=== PATIENT | male | born 1945 | race Caucasian/White ===

== ENCOUNTER 2019-03-05 12:17 | Emergency (ER) | payer MEDICARE ==
[~2019-03-05] VITALS: Ht 185.4 cm; Wt 135.5 kg
[~2019-03-05 12:17] MED LIST: ALLOPURINOL100 MG; FISH OIL1000 MG PO; FLEXERIL OR; FLEXERIL10 MG OR; LISINOPRIL2.5 MG; NAPROSYN500 MG OR
[2019-03-05] MEDS ORDERED: ALLOPURINOL100 MG PO (12:55)
[2019-03-05] MEDS ORDERED: AMLODIPINE BESYL5 MG PO (12:56)
[2019-03-05] MEDS ORDERED: LISINOPRIL10 MG PO (12:57)
[2019-03-05] MEDS ORDERED: FISH OIL1000 MG PO (12:57)
[2019-03-05] MEDS ORDERED: CENTRUM PO (12:57)
[2019-03-05] MEDS ORDERED: B121000 MCG (12:59)
[2019-03-05] MEDS ORDERED: BACTRIM DS1 TAB PO (13:54)
[2019-03-05 14:00] VITALS: BP 122/68
== END 2019-03-05 14:00 | disposition home or self-care (01) ==
LOC: ED 12:17
DX: L02.512 Cutaneous abscess of left hand (principal); L03.011 Cellulitis of right finger; I10 Essential (primary) hypertension; F17.220 Nicotine dependence, chewing tobacco, uncomplicated; B95.62 Methicillin resistant Staphylococcus aureus infection as the cause of diseases classified elsewhere

== ENCOUNTER 2020-04-09 20:31 | Emergency (ER) | payer MEDICARE ==
[~2020-04-09] VITALS: Ht 185.4 cm; Wt 140.9 kg
[~2020-04-09 20:31] MED LIST changes: +ALLOPURINOL100 MG PO; +AMLODIPINE BESYL5 MG PO; +B121000 MCG; +BACTRIM DS1 TAB PO; +CENTRUM PO; +LISINOPRIL10 MG PO
[2020-04-09] MEDS ORDERED: LOSARTAN POTASS25 MG PO (20:52)
[2020-04-09 21:23] LABS: HEMATOCRIT 38.6 % (39.0-50.0); HEMOGLOBIN 12.6 g/dl (14.0-18.0); IMMATURE GRANULOCYTES 0.7 % (0.0-5.0); MEAN CELL VOLUME 100.8 fL CALC (80.0-100.0); MEAN CORPUSCULAR HGB 32.9 pG CALC (26.0-32.0); MEAN CORPUSCULAR HGB CONC 32.6 g/dL CAL (32.0-36.0); NEUT# 6.12 thou/uL (1.82-7.42); RED BLOOD COUNT 3.83 mill/uL (4.70-6.10)
[2020-04-09 21:42] VITALS: BP 130/60
[2020-04-09 21:45] LABS: ALBUMIN 3.9 g/dL (3.2-5.0); ALKALINE PHOSPHATASE 79 u/l (38-126); ANION GAP 13 (6-22 (CALC)); BILIRUBIN, TOTAL 1.4 mg/dL (0.0-1.4); BUN 13 mg/dL (8-23); BUN/CREATININE RATIO 16 (12-20 (CALC)); CARBON DIOXIDE 25 mmol/l (22-30); CHLORIDE 105 mmol/l (95-108); CREATININE 0.8 mg/dL (0.7-1.3); GFR > 60 ML/MIN (>=60 (CALC)); GFR FOR AFR.AMER. > 60 ML/MIN (>=60 (CALC)); POTASSIUM 3.7 mmol/l (3.5-5.1); SGOT/AST 23 u/l (19-48); SODIUM 139 mmol/l (137-146); TOTAL PROTEIN 6.9 g/dL (6.3-8.2)
[2020-04-09] MEDS ORDERED: TRAMADOL HYDROC50 MG PO (22:18)
[2020-04-09] MEDS ORDERED: STERAPRED DS10 MG PO (22:18)
== END 2020-04-09 22:48 | disposition home or self-care (01) ==
LOC: ED 20:31
PROVIDERS: Family Medicine
DX: M89.49 Other hypertrophic osteoarthropathy, multiple sites (principal); I10 Essential (primary) hypertension; M10.9 Gout, unspecified; J45.909 Unspecified asthma, uncomplicated; F17.220 Nicotine dependence, chewing tobacco, uncomplicated

== ENCOUNTER 2020-12-08 09:43 | Inpatient (IN) | payer MEDICARE ==
[~2020-12-08] VITALS: Ht 185.4 cm; Wt 125.0 kg
[~2020-12-08 09:43] MED LIST changes: +LOSARTAN POTASS25 MG PO; +STERAPRED DS10 MG PO; +TRAMADOL HYDROC50 MG PO
--- NOTE | 2020-12-08 09:43 | NUR ---
PATIENT TO ROOM 9 VIA WHEELCHAIR. BEDSIDE TRIAGE COMPLETED
[2020-12-08 10:28] LABS: IMMATURE GRANULOCYTES 1.1 % (0.0-5.0); MEAN CELL VOLUME 97.9 fL CALC (80.0-100.0); MEAN CORPUSCULAR HGB 31.7 pG CALC (26.0-32.0); MEAN CORPUSCULAR HGB CONC 32.4 g/dL CAL (32.0-36.0); NEUT# 5.72 thou/uL (1.82-7.42); RED BLOOD COUNT 4.7 mill/uL (4.70-6.10); RED CELL DISTRI WIDTH 13.4 % (11.5-15.5)
--- NOTE | 2020-12-08 10:30 | NUR ---
RESTING IN HIGH FOWLERS, #20 RAC INFUSING WITHOUT DIFFICULTY, SITE APPPEARS HEALTHY, WITHOUT REDNESS OR EDEMA.
[2020-12-08 10:46] LABS: D-DIMER 1.76 mg/L (0.19-0.60); PROTHROMBIN TIME 10.8 SECONDS (9.0-12.5)
[2020-12-08 10:49] LABS: HEMOGLOBIN 14.9 g/dl (14.0-18.0)
[2020-12-08 11:09] LABS: ALBUMIN 3.9 g/dL (3.2-5.0); ALKALINE PHOSPHATASE 64 u/l (38-126); BUN 24 mg/dL (8-23); BUN/CREATININE RATIO 25 (12-20 (CALC)); CARBON DIOXIDE 26 mmol/l (22-30); CHLORIDE 97 mmol/l (95-108); GFR > 60 ML/MIN (>=60 (CALC)); GFR FOR AFR.AMER. > 60 ML/MIN (>=60 (CALC)); POTASSIUM 4.3 mmol/l (3.5-5.1); TOTAL PROTEIN 7.6 g/dL (6.3-8.2)
[2020-12-08 11:10] LABS: ANION GAP 12 (6-22 (CALC)); BILIRUBIN, TOTAL 0.8 mg/dL (0.0-1.4); SGOT/AST 46 u/l (19-48); SODIUM 131 mmol/l (137-146)
[2020-12-08 11:36] LABS: URINE BLOOD DIPSTICK NEGATIVE (NEGATIVE); URINE COLOR YELLOW; URINE GLUCOSE - DIPSTICK NEGATIVE (NEGATIVE); URINE KETONE 15 mg/dL (NEGATIVE); URINE LEUK ESTERASE NEGATIVE (NEGATIVE); URINE PROTEIN - DIPSTICK 100 mg/dL (NEG-TRACE)
[2020-12-08 11:47] LABS: URINE BILIRUBIN - DIPSTICK SMALL (NEGATIVE); URINE NITRITE - DIPSTICK NEGATIVE (Negative)
[2020-12-08 11:49] LABS: URINE RENAL EPITHELIAL CELLS FEW hpf
--- NOTE | 2020-12-08 12:25 | NUR ---
REPOSITIONED PT IN MORE COMFORTABLE POSITION ON STRETCHER. DENIES NEEDS AT THIS TIME.
--- NOTE | 2020-12-08 13:27 | NUR ---
MD AT BEDSIDE TO DISCUSS RESULTS AND POC
--- NOTE | 2020-12-08 15:03 | NUR ---
RESTING QUIETLY, DENIES NEEDS AT THIS TIME.
--- NOTE | 2020-12-08 15:45 | NUR ---
ASSISTED TO STAND BESIDE FOR STRETCHER FOR URINAL USE.
--- NOTE | 2020-12-08 17:46 | NUR ---
REPORT CALLED TO ALEM BEAVERS.
--- NOTE | 2020-12-08 17:48 | NUR ---
REPORT REC FROM Sandra BHARDWAJ RN
--- NOTE | 2020-12-08 18:10 | NUR ---
TO MED SURG VIA STRETCHER, TELE MONITOR IN PLACE, O2 AT 4L VIA NC.
[2020-12-08 18:12] VITALS: BP 139/65
--- NOTE | 2020-12-08 18:15 | NUR ---
pt arrived via stretcher with o2 via nc @4L accompanied by Sandra Bustos RN. Pt assisted to the bed. O2 sustaining 88-89%. time to recover from stretcher to bed transfer given, pt still remaining as such. O2 obed NC HF applied. Pt applied on High flow 6L. o2 now 91-92%. IS device given, pt educated on proper use of device. currently achieving 1000ML. Encouraged to use Q1 hr while awake. Edema noted to ble, pt reports this is their normal appearance, strong pedal pulses bilaterally. Oriented pt to room. Call light within reach.
--- NOTE | 2020-12-08 20:31 | NUR ---
PHYSICAL ASSESMENT COMPLETE. PT CURRENTLY DENIES PAIN OR DISCOMFORT. SCHEDULED MEDICATIONS AND PRN MEDICATION ADMINISTERED, SEE E-MAR. PT DENIES ANY NEEDS AT THIS TIME. PLAN OF CARE REVIEWED, PT DENIES QUESTIONS, VERBALIZES UNDERSTANDING. ITEMS WITHIN REACH, BED LOCKED IN LOW POSITION W/ BEDRAILS UP X2. CALL DIAZ WITHIN REACH, AGREES TO CALL PRN.
[2020-12-09] VITALS: BP 135/65
[2020-12-09 04:00] VITALS: BP 140/69
--- NOTE | 2020-12-09 04:32 | NUR ---
PT LAYING IN BED WITH EYES CLOSED, APPEARS TO BE SLEEPING, APPEARS COMFORTABLE AND IN NO DISTRESS. RESPIRATIONS REGULAR AND UNLABORED. ITEMS REMAIN WITHIN REACH, CALL DIAZ REMAINS WITHIN REACH. BED REMAINS LOCKED AND IN LOW POSITION WITH BEDRAILS UP X2. WILL CONTINUE TO MONITOR.
[2020-12-09 05:30] LABS: HEMATOCRIT 45.2 % (39.0-50.0); HEMOGLOBIN 14.8 g/dl (14.0-18.0); IMMATURE GRANULOCYTES 1.5 % (0.0-5.0); MEAN CELL VOLUME 99.1 fL CALC (80.0-100.0); MEAN CORPUSCULAR HGB 32.5 pG CALC (26.0-32.0); MEAN CORPUSCULAR HGB CONC 32.7 g/dL CAL (32.0-36.0); NEUT# 4.99 thou/uL (1.82-7.42); RED BLOOD COUNT 4.56 mill/uL (4.70-6.10); RED CELL DISTRI WIDTH 13.6 % (11.5-15.5)
[2020-12-09 05:52] LABS: ALBUMIN 3.2 g/dL (3.2-5.0); ALKALINE PHOSPHATASE 60 u/l (38-126); ANION GAP 13 (6-22 (CALC)); BILIRUBIN, TOTAL 0.6 mg/dL (0.0-1.4); BUN 26 mg/dL (8-23); BUN/CREATININE RATIO 40 (12-20 (CALC)); CARBON DIOXIDE 25 mmol/l (22-30); CHLORIDE 101 mmol/l (95-108); CREATININE 0.6 mg/dL (0.7-1.3); GFR > 60 ML/MIN (>=60 (CALC)); GFR FOR AFR.AMER. > 60 ML/MIN (>=60 (CALC)); POTASSIUM 4.9 mmol/l (3.5-5.1); SGOT/AST 36 u/l (19-48); SODIUM 134 mmol/l (137-146); TOTAL PROTEIN 6.4 g/dL (6.3-8.2)
[2020-12-09 06:24] LABS: C-REACTIVE PROTEIN 15.2 mg/dL (0-0.9)
[2020-12-09 07:36] VITALS: BP 152/69
--- NOTE | 2020-12-09 07:40 | NUR ---
PT SEEN AWAKE, ALERT, ORIENTED X 3. LUNGS COARSE PER RECENT COUGH, 5 LPM NC ADVANCED TO 6 LPM NC PER SAT 87-88%. PT DENIES SHORTNESS OF BREATH.
--- NOTE | 2020-12-09 08:00 | NUR ---
PT SEEN AWAKE, ALERT, ORIENTED X 3. LUNGS DIMINISHED, COARSE AFTER COUGH, NOW ON 6 LPM NC, SATS 88-92%. PT DENIES SHORTNESS OF BREATH. LEGS ARE 2+ EDEMATOUS, PT STATES THAT THEY ARE ALWAYS THAT WAY. DAUGHTER MAE HAS CALLED AND WAS UPDATED.
[2020-12-09 11:18] VITALS: BP 151/70
--- NOTE | 2020-12-09 13:17 | NUR ---
PT'S SATS REMAIN 90% WITH 6 LPM NC. PT DENIES SHORTNESS OF BREATH. PT STATES THAT THE BED IS UNCOMFORTABLE, WILL MOVE TO CHAIR LATER OR TOMORROW.
[2020-12-09 14:45] VITALS: BP 139/67
--- NOTE | 2020-12-09 16:35 | NUR ---
PT OOB INTO CHAIR AT BEDSIDE FOR COMFORT. PT CONTINUES ON 6 LPM NC, SATS REMAIN RIGHT AROUND 90%.
[2020-12-09 21:45] VITALS: BP 144/69
[2020-12-10] VITALS (17 sets, daily range): BP systolic 120–172; BP diastolic 60–86
--- NOTE | 2020-12-10 03:54 | NUR ---
PT RESTING IN BED, NO SIGNS OF DISTRESS NOTED, RESP EVEN AND UNLABORED. PT VOICES NO NEEDS OR COMPLAINTS AT THIS TIME. CALL LIGHT IN REACH, CONTINUE TO MONITOR.
[2020-12-10 06:17] LABS: HEMATOCRIT 42.2 % (39.0-50.0); HEMOGLOBIN 13.7 g/dl (14.0-18.0); IMMATURE GRANULOCYTES 1.4 % (0.0-5.0); MEAN CELL VOLUME 99.1 fL CALC (80.0-100.0); MEAN CORPUSCULAR HGB 32.2 pG CALC (26.0-32.0); MEAN CORPUSCULAR HGB CONC 32.5 g/dL CAL (32.0-36.0); NEUT# 3.27 thou/uL (1.82-7.42); RED BLOOD COUNT 4.26 mill/uL (4.70-6.10); RED CELL DISTRI WIDTH 13.5 % (11.5-15.5)
[2020-12-10 06:28] LABS: ALBUMIN 2.8 g/dL (3.2-5.0); ALKALINE PHOSPHATASE 58 u/l (38-126); ANION GAP 12 (6-22 (CALC)); BUN 28 mg/dL (8-23); BUN/CREATININE RATIO 38 (12-20 (CALC)); CARBON DIOXIDE 24 mmol/l (22-30); CHLORIDE 104 mmol/l (95-108); CREATININE 0.7 mg/dL (0.7-1.3); GFR > 60 ML/MIN (>=60 (CALC)); GFR FOR AFR.AMER. > 60 ML/MIN (>=60 (CALC)); POTASSIUM 4.6 mmol/l (3.5-5.1); SGOT/AST 25 u/l (19-48); SODIUM 135 mmol/l (137-146); TOTAL PROTEIN 5.9 g/dL (6.3-8.2)
[2020-12-10 06:39] LABS: BILIRUBIN, TOTAL 0.3 mg/dL (0.0-1.4)
--- NOTE | 2020-12-10 08:10 | NUR ---
ASSESSMENT DONE. PATIENT IS ALERT AND ORINET X3. PATIENT DENIES PAIN. LUNGS SOUND COARSE. PATIENT STATE SOB. O2 AT 6L HF AND O2 READING 84%. INCREASE O2 10L VIA HFNC AND O2 READING 88%. ENCOURAGE PATIENT TO LAY PRONE POSITION. PATIENT REFUSING STATED THAT HE FEELS PAIN AND MORE SOB WHEN HE IS PRONE. O2 READING 88% STILL INCREASE 02 TO 15L HF. O2 READING 89%. TELE IN PLACE. ENCOURAGE PATIENT AGAIN ABOUT PRONES POSITION. PATIENT STATED OKAY BUT ONLY HALF WAY PRONE. O2 READING 90%. PATIENT DENIES ANY OTHER NEEDS AT THIS TIME. SAFETY PRECAUTIONS REINFORCED AND CALL LIGHT IN REACH.
--- NOTE | 2020-12-10 10:20 | NUR ---
DR. BOWDEN AND GISSELL SALDANA AT BEDSIDE TO ASSESS PATIENT. PATIENT IS BREATHING LABORED. DR. BOWDEN CHECKED PATIENT 02 AND READING 88% AT 15L HFNC. ORDER RECEIVED FOR PATIENT TO BE TRANSFER TO ICU.
--- NOTE | 2020-12-10 10:25 | NUR ---
PATIENT REPORT RECIEVED FROM GEO BEAVERS FROM [facility]. PATIENT WILL BE IN ICU BED 2.
--- NOTE | 2020-12-10 10:35 | NUR ---
1027 REPORT GIVEN TO NIMESH PAGAN. 1035. PATIENT TRANSFER TO ICU BED2 VIA BED AND O2 IN PLACE.
--- NOTE | 2020-12-10 10:45 | NUR ---
PATIENT IS A/O X3, ABLE TO MAKE NEEDS KNOWN TO STAFF. 3MM PERRLA. BRISK. DENIES PAIN AT THIS TIME. SATS ARE 89% ON VAPOTHERM 30L AND 70%. DIMINIHSED LUNG SOUNDS THROUGHOUT. ACTIVE BOWEL SOUNDS. SOFT OBESE ABDOMEN. STRONG EQUAL HAND BENCH CARPENTER. NO ARM DRIFT. NO LEG DRIFT. EDEMA IN BILATERAL LOWER LEGS. STRONG PULSES. SKIN IS INTACT, HAS A HEALED SCAR ON RIGHT FOREARM. SAFETY MEASURES IN PLACE. CALL LIGHT WAS IN REACH, PATIENT STATED THAT HE UNDERSTANDS HOW TO USE IT. WILL CONTINUE TO MONITOR PER HOSPITAL'S POLICY.
--- NOTE | 2020-12-10 12:00 | NUR ---
PATIENT IS SITTING UP IN BED WATCHING TV AND EATING HIS LUNCH.
--- NOTE | 2020-12-10 13:04 | NUR ---
PATIENT USED I.S AND REACHED 1250.
--- NOTE | 2020-12-10 14:00 | NUR ---
PATIENT IS WATCHING TV.
--- NOTE | 2020-12-10 15:32 | NUR ---
PATIENT'S DAUGHTER CALLED, GAVE THE PATIENT CODE, UPDATE WAS GIVEN.
--- NOTE | 2020-12-10 16:01 | NUR ---
PATIENT IS SITTING UP IN BED WATCHING TV.
--- NOTE | 2020-12-10 18:14 | NUR ---
VITALS ARE STABLE.
--- NOTE | 2020-12-10 19:41 | NUR ---
ASSESSMENT COMPLETED, PT VERBALIZES NO COMPLAINTS AT THIS TIME, PT VS ARE STABLE, JAVA SYSTEMS ANALYST IN PLACE, SR ON THE MONITOR, O2 92% PT SITTING UP IN THE BED, IV SITE CD&I 20G RH IV SALINE LOCKED, COURSE BREATH SOUNDS, BED RAILS UP AND SAFETY MEASURES IN PLACE, CALL LIGHT WITHIN REACH
--- NOTE | 2020-12-10 20:53 | NUR ---
PT LAYING IN BED WATCHING TV, DENIES ANY PAIN OR SOB, CALL LIGHT WITHIN REACH
--- NOTE | 2020-12-10 21:25 | NUR ---
PT DAUGHTER CALL FOR UPDATE, UPDATE PROVIDED FOR DAUGHTER, PT RESTING IN BED, VS ARE STABLE, CALL LIGHT WITHIN REACH
--- NOTE | 2020-12-10 22:18 | NUR ---
PT LAYING IN BED WATCHING TV, VS STABLE, PT REMINDED TO CALL FOR ASSISTANCE, CALL LIGHT WITHIN REACH
--- NOTE | 2020-12-10 23:30 | NUR ---
PT LAYING IN BED RESTING, VS STABLE, CALL DIAZ WITHIN REACH
[2020-12-11] VITALS (12 sets, daily range): BP systolic 115–166; BP diastolic 59–99
--- NOTE | 2020-12-11 00:35 | NUR ---
ASSISTED PT WITH STANDING AT BEDSIDE TO USE THE URINAL, PT TOLERATED WELL, PT ASSISTED WITH GETTING BACK IN BED, CALL DIAZ WITHIN REACH
--- NOTE | 2020-12-11 01:25 | NUR ---
PT SLEEPING, VITAL SIGNS STABLE, CALL LIGHT WITHIN REACH
--- NOTE | 2020-12-11 02:15 | NUR ---
PT ASSISTED TO THE SIDE OF THE BED TO USE THE URINAL, PT TOLERATED, PT ASSISTED BACK TO BED, PT REMINDED TO CALL FOR ASSISTANCE, PT VERBALIZED UNDERSTANDING, CALL DIAZ WITHIN REACH
--- NOTE | 2020-12-11 03:16 | NUR ---
PT WATCHING TV, VERBALIZES NO COMPLAINTS, REMINDED TO CALL FOR ASSISTANCE, CALL DIAZ WITHIN REACH
--- NOTE | 2020-12-11 04:40 | NUR ---
LAB AT BEDSIDE
--- NOTE | 2020-12-11 05:10 | NUR ---
ASSISTED PT WITH GETTING O2 BACK ON
[2020-12-11 05:28] LABS: HEMATOCRIT 42.6 % (39.0-50.0); HEMOGLOBIN 13.8 g/dl (14.0-18.0); IMMATURE GRANULOCYTES 1.1 % (0.0-5.0); MEAN CELL VOLUME 99.1 fL CALC (80.0-100.0); MEAN CORPUSCULAR HGB 32.1 pG CALC (26.0-32.0); MEAN CORPUSCULAR HGB CONC 32.4 g/dL CAL (32.0-36.0); NEUT# 3.44 thou/uL (1.82-7.42); RED BLOOD COUNT 4.3 mill/uL (4.70-6.10); RED CELL DISTRI WIDTH 13.4 % (11.5-15.5)
[2020-12-11 05:47] LABS: ALBUMIN 2.7 g/dL (3.2-5.0); ALKALINE PHOSPHATASE 54 u/l (38-126); ANION GAP 10 (6-22 (CALC)); BILIRUBIN, TOTAL 0.3 mg/dL (0.0-1.4); BUN 27 mg/dL (8-23); BUN/CREATININE RATIO 38 (12-20 (CALC)); CARBON DIOXIDE 25 mmol/l (22-30); CHLORIDE 105 mmol/l (95-108); CREATININE 0.7 mg/dL (0.7-1.3); GFR > 60 ML/MIN (>=60 (CALC)); GFR FOR AFR.AMER. > 60 ML/MIN (>=60 (CALC)); POTASSIUM 4.7 mmol/l (3.5-5.1); SGOT/AST 24 u/l (19-48); SODIUM 135 mmol/l (137-146); TOTAL PROTEIN 5.7 g/dL (6.3-8.2)
--- NOTE | 2020-12-11 05:58 | NUR ---
PT ASSISTED TO BEDSIDE TO USE THE URINAL, PT TOLERATED WELL
--- NOTE | 2020-12-11 07:47 | NUR ---
PT SEEN AWAKE, ALERT, ORIENTED X 3. BREAKFAST PROVIDED, PT EATING NOW. VAPOTHERM AT 30/80% SETTINGS.
--- NOTE | 2020-12-11 09:54 | NUR ---
FIO2 DECREASED TO 70%.
--- NOTE | 2020-12-11 13:42 | NUR ---
PT ASSISTED WITH BEDBATH TODAY AND SHAVE, STATES THAT HE FEELS MUCH BETTER. PT OOB INTO CHAIR FOR PART OF THE MORNING. SATS 91%.
--- NOTE | 2020-12-11 16:36 | NUR ---
PT IN THE BED FOR THE AFTERNOON, SEEN AT REST IN NO DISTRESS.
--- NOTE | 2020-12-11 17:08 | NUR ---
FLOW DECREASED TO 25L.
--- NOTE | 2020-12-11 18:26 | NUR ---
PT WITH INDIGESTION, PROVIDED TUMS ORDERED. VAPOTHERM DOWN TO 30L/70%, SATS 92%.
--- NOTE | 2020-12-11 19:21 | NUR ---
REPORT GIVEN BY JUSTINE. PATIENT SITTING UP ON THE SIDE OF THE BED WATCHING TV. RESP SHALLOW AND SLIGHTLY LABORED, VAPOTHERM 30L/70% FIO2. FALL AND SAFTEY PRECAUTIONS IN PLACE. LUNG SOUNDS COARSE WITH PRODUCTIVE COUGH PRESENT. 20 R HAND SALINE LOCKED. SR WITH PAV/PVC/1 DEGREE ON TELE. PLAN OF CARE DISCUSSED. PATIENT INFORMED TO CALL WITH ANY QUESTIONS OR CONCERNS
--- NOTE | 2020-12-11 20:21 | NUR ---
PATIENT REQUESTING BP CUFF TO BE TAKEN OFF FOR A WHILE. PATIENT EDUCATED ON RESONS TO CONTIUNE TO WEAR BP CUFF. PATIENT CONTIUNES TO REFUSE BP CUFF. INFORMED PATIENT THAT BP WOULD BE RETAKEN AT MIDNIGHT.
--- NOTE | 2020-12-11 22:14 | NUR ---
PATIENT RESTING IN BED WITH EYES CLOSED. RESP EVEN AND UNLABORED, VAPOTHERM IN PLACE.
[2020-12-12] VITALS (9 sets, daily range): BP systolic 118–168; BP diastolic 59–79
--- NOTE | 2020-12-12 00:15 | NUR ---
PATIENT RESTING WITH EYES CLOSED.
--- NOTE | 2020-12-12 01:53 | NUR ---
patient up to use bsc
--- NOTE | 2020-12-12 05:36 | NUR ---
MORNING LABS DRAWN
[2020-12-12 05:54] LABS: HEMATOCRIT 43.5 % (39.0-50.0); IMMATURE GRANULOCYTES 1.4 % (0.0-5.0); MEAN CORPUSCULAR HGB 32.2 pG CALC (26.0-32.0); MEAN CORPUSCULAR HGB CONC 32.2 g/dL CAL (32.0-36.0); NEUT# 3.39 thou/uL (1.82-7.42); RED BLOOD COUNT 4.35 mill/uL (4.70-6.10); RED CELL DISTRI WIDTH 13.3 % (11.5-15.5)
[2020-12-12 06:29] LABS: ALBUMIN 2.7 g/dL (3.2-5.0); ALKALINE PHOSPHATASE 53 u/l (38-126); ANION GAP 7 (6-22 (CALC)); BUN 28 mg/dL (8-23); BUN/CREATININE RATIO 37 (12-20 (CALC)); C-REACTIVE PROTEIN 4.1 mg/dL (0-0.9); CARBON DIOXIDE 26 mmol/l (22-30); CHLORIDE 106 mmol/l (95-108); CREATININE 0.7 mg/dL (0.7-1.3); GFR > 60 ML/MIN (>=60 (CALC)); GFR FOR AFR.AMER. > 60 ML/MIN (>=60 (CALC)); POTASSIUM 4.6 mmol/l (3.5-5.1); SGOT/AST 25 u/l (19-48); SODIUM 135 mmol/l (137-146); TOTAL PROTEIN 5.8 g/dL (6.3-8.2)
[2020-12-12 06:32] LABS: BILIRUBIN, TOTAL 0.5 mg/dL (0.0-1.4)
--- NOTE | 2020-12-12 08:00 | NUR ---
PT AWAKE, ALERT, ORIENTED X 3. LUNGS CLEAR BUT DIMINISHED, ALSO COARSE SOUNDING WHEN COUGHS, USES VAPOTHERM AT 30LPM/70% FIO2, SATS IN THE UPPER 80s TO LOWER 90s.
--- NOTE | 2020-12-12 09:57 | NUR ---
no changes at this time. pt doing well. nad. sitting in chair at bedisde. talking in full sentences. diet consultant to monitor.
--- NOTE | 2020-12-12 11:43 | NUR ---
Patient underwent PT intervention today. Patient carried out seated B LE AROM exercises today doing hip flexion, hip adduction, hip abduction, hamstring curls, knee extension, gluteal squeezes, and ankle pumps for 10 reps x 2 sets with verbal and tactile cuing to help decrease trick movements and fall risks. Patient participated with log rolling bed mobility and sit to stand push off transfer ADLs (1 to 2 reps) with occasional verbal and tactile cuing to help decrease fall risks.
--- NOTE | 2020-12-12 12:19 | NUR ---
no changes at this time. pt sweetie well. nad. vss. clinical informatics manager to monitor.
--- NOTE | 2020-12-12 13:03 | NUR ---
PT ASSISTED TO STAND WHILE IN CHAIR, THIS TO PROVIDE RELIEF TO HIS TAILBONE WHICH HE BROKE A CHILD. PT SOMEWHAT RESTLESS WITH BEING IN HOSPITAL FOR THIS LONG, BUT ADVISED THAT HE IS DOING OKAY.
--- NOTE | 2020-12-12 16:18 | NUR ---
PT CONTINUES IN CHAIR AT THIS TIME, HAS ASKED TO BE BACK IN BED AFTER SUPPER. SATS 92%.
--- NOTE | 2020-12-12 18:29 | NUR ---
PT BACK IN BED PRIOR TO SUPPER ARRIVAL. PT REMAINS STABLE ON CURRENT VAPOTHERM SETTINGS , SAT 92%.
--- NOTE | 2020-12-12 20:08 | NUR ---
PATIENT AWAKE IN BED, SEMI-FOWLERS POSITION. ALERT AND ORIENTED. ABLE TO MAKE NEEDS KNOWN. ON VAPOTHERM VIA N/C. RESPIRATIONS EVEN UNLABORED WHEN RESTING, SOB NOTED WHEN TALKING AND EXERTION. ON MONITOR. HR IRR. BS+. NO COMPLAINTS AT THIS TIME. ASSESSMENT COMPLETED AND CHARTED. VAD S/L. BED IN LOW POSITION. CALL LIGHT WITHIN REACH.
--- NOTE | 2020-12-12 21:14 | NUR ---
PULSE OX UNPLUGGED AND REATTACHED. PATIENT SEMI-FOWLERS. NO ACUTE DISTRESS OBSERVED.
--- NOTE | 2020-12-12 23:13 | NUR ---
PATIENT REFUSING TO HAVE B/P CHECKED EVERY HOUR. PATIENT AGREED TO HAVE B/P EVERY 4 HOURS D/T DISCOMFORT. PATIENT IS IN NO ACUTE DISTRESS AT THIS TIME.
[2020-12-13] VITALS (13 sets, daily range): BP systolic 111–168; BP diastolic 64–75
--- NOTE | 2020-12-13 00:14 | NUR ---
PATIENT RESTING QUIETLY. NO ACUTE DISTRESS OBSERVED. BED IN LOW POSITION. CALL LIGHT WITHIN REACH.
--- NOTE | 2020-12-13 02:34 | NUR ---
UP TO SIDE OF BED TO URINATE X1 ASSIST. OXYGEN SATURATION 92%.
--- NOTE | 2020-12-13 04:00 | NUR ---
RESTING QUIETLY. NO ACUTE DISTRESS. BED IN LOW POSITION. CALL LIGHT WITHIN REACH.
[2020-12-13 05:55] LABS: HEMATOCRIT 42.5 % (39.0-50.0); HEMOGLOBIN 13.7 g/dl (14.0-18.0); IMMATURE GRANULOCYTES 1.7 % (0.0-5.0); MEAN CELL VOLUME 99.1 fL CALC (80.0-100.0); MEAN CORPUSCULAR HGB 31.9 pG CALC (26.0-32.0); MEAN CORPUSCULAR HGB CONC 32.2 g/dL CAL (32.0-36.0); NEUT# 3.45 thou/uL (1.82-7.42); RED BLOOD COUNT 4.29 mill/uL (4.70-6.10); RED CELL DISTRI WIDTH 13.5 % (11.5-15.5)
[2020-12-13 06:04] LABS: ALBUMIN 2.7 g/dL (3.2-5.0); ALKALINE PHOSPHATASE 50 u/l (38-126); ANION GAP 7 (6-22 (CALC)); BILIRUBIN, TOTAL 0.5 mg/dL (0.0-1.4); BUN 29 mg/dL (8-23); BUN/CREATININE RATIO 36 (12-20 (CALC)); CARBON DIOXIDE 25 mmol/l (22-30); CHLORIDE 107 mmol/l (95-108); CREATININE 0.8 mg/dL (0.7-1.3); GFR > 60 ML/MIN (>=60 (CALC)); GFR FOR AFR.AMER. > 60 ML/MIN (>=60 (CALC)); POTASSIUM 4.6 mmol/l (3.5-5.1); SGOT/AST 23 u/l (19-48); SODIUM 135 mmol/l (137-146); TOTAL PROTEIN 5.7 g/dL (6.3-8.2)
--- NOTE | 2020-12-13 06:20 | NUR ---
PATIENT RESTING QUIETLY IN BED. NO ACUTE DISTRESS OBSERVED.
--- NOTE | 2020-12-13 07:49 | NUR ---
PT AWAKE, ALERT, ORIENTED X 3. LUNGS CLEAR BUT DIMINISHED, VAPOTHERM AT 25 LPM/ 70% FIO2 SETTINGS, SATS 90%.
--- NOTE | 2020-12-13 11:04 | NUR ---
PT SWITCHED FROM VAPOTHERM TO HIGH FLOW NASAL CANNULA AT THIS TIME. SATS IMPROVED FROM 90% TO AROUND 93-94%. PT UP TO BSC FOR BM EARLIER.
--- NOTE | 2020-12-13 11:12 | NUR ---
VAPOTHERM STANDBY. PT. ON 15L HF. O2 SAT 96%.
--- NOTE | 2020-12-13 14:42 | NUR ---
Patient participated with PT intervention today. Patient carried out seated B LE AROM exercises: hip flexion, hip adduction, hip abduction, hamstring curls, knee extension, and ankle pumps for 10 reps x 2 sets with occasional verbal and tactile cuing to help decrease trick movements and fall risks. Patient participated with log rolling bed mobility and sit to stand push off transfer ADLs for 1 to 2 reps with mod to min a x 1 with verbal and tactile cuing to help decrease fall risks.
--- NOTE | 2020-12-13 15:23 | NUR ---
PT CONTINUES VERY WELL WITH HFNC, SEEN TO BE 96%. PT BACK TO BED AFTER BEING IN CHAIR THIS MORNING.
--- NOTE | 2020-12-13 16:28 | NUR ---
O2 SAT ON 12L HF 95%. DECREASED TO 10L.
--- NOTE | 2020-12-13 17:31 | NUR ---
DAUGHTER RICARDO (OG) UPDATED ON FATHER'S CONDITION, PLEASED THAT HE HAS BEEN WEANED DOWN TO 10 LPM HFNC. PT TOLERATING WELL, SATS LOW TO MID 90s. PT HAS HAD TWO BMs TODAY.
--- NOTE | 2020-12-13 18:50 | NUR ---
RECEIVED REPORT FROM JUSTINE BEAVERS. PATIENT STABLE.
--- NOTE | 2020-12-13 19:58 | NUR ---
PATIENT SEMI-FOWLERS POSITION. ALERT AND ORIENTED X3. ABLE TO MAKE NEEDS KNOWN. O2 10L HIGH FLOW N/C. TOLERATING WELL. RESPIRATIONS EVEN AND UNLABORED. LUNG SOUNDS CLEAR WITH CRACKLES AT BASES B/L. HR IRR. ON MONITOR. BS+. NO C/O PAIN VERBALIZED. EDEMA NOTED TO BLLE =2 PITTING EDEMA. ASSESSMENT COMPLETED AND CHARTED. BED IN LOW POSITION. CALL LIGHT WITHIN REACH.
--- NOTE | 2020-12-13 20:45 | NUR ---
Lovenox 120mg Sq given as ordered, Tylenol po given for milk back pain. Tolerated well. Vapotherm in place and current setting. No acute distress observed.
--- NOTE | 2020-12-13 22:46 | NUR ---
PATIENT RESTING QUIETLY SEMI-FOWLERS POSITION. HIGH FLOW N/C IN PLACE AT CURRENT SETTINGS. NO ACUTE DISTRESS OBSERVED. BED IN LOW POSITION. CALL LIGHT WITHIN REACH.
[2020-12-14] VITALS (23 sets, daily range): BP systolic 115–179; BP diastolic 58–100
--- NOTE | 2020-12-14 00:30 | NUR ---
PATIENT RESTING QUIETLY. NO ACUTE DISTRESS OBSERVED.
--- NOTE | 2020-12-14 02:00 | NUR ---
Patient resting with eyes closed. No acute distress observed.
--- NOTE | 2020-12-14 03:12 | NUR ---
Patient up to BSC with 1 assist without difficulty. 350cc output yellow urine.
--- NOTE | 2020-12-14 04:10 | NUR ---
No changes noted.
--- NOTE | 2020-12-14 04:57 | NUR ---
A.M. labs drawn. Up to BSC x1 assist without difficulty. 100cc yellow urine out. No acute distress observed.
--- NOTE | 2020-12-14 05:24 | NUR ---
Radiology at bedside for CXR.
[2020-12-14 05:43] LABS: HEMATOCRIT 43.8 % (39.0-50.0); HEMOGLOBIN 14.3 g/dl (14.0-18.0); IMMATURE GRANULOCYTES 1.6 % (0.0-5.0); MEAN CELL VOLUME 98.6 fL CALC (80.0-100.0); MEAN CORPUSCULAR HGB 32.2 pG CALC (26.0-32.0); MEAN CORPUSCULAR HGB CONC 32.6 g/dL CAL (32.0-36.0); NEUT# 3.76 thou/uL (1.82-7.42); RED BLOOD COUNT 4.44 mill/uL (4.70-6.10); RED CELL DISTRI WIDTH 13.3 % (11.5-15.5)
[2020-12-14 06:12] LABS: ANION GAP 6 (6-22 (CALC)); BUN 24 mg/dL (8-23); BUN/CREATININE RATIO 29 (12-20 (CALC)); C-REACTIVE PROTEIN 3.4 mg/dL (0-0.9); CARBON DIOXIDE 27 mmol/l (22-30); CHLORIDE 106 mmol/l (95-108); CREATININE 0.8 mg/dL (0.7-1.3); GFR > 60 ML/MIN (>=60 (CALC)); GFR FOR AFR.AMER. > 60 ML/MIN (>=60 (CALC)); POTASSIUM 4.7 mmol/l (3.5-5.1); SODIUM 135 mmol/l (137-146)
--- NOTE | 2020-12-14 08:00 | NUR ---
PT SEEN AWAKE, ALERT, ORIENTED X 3. LUNGS WITH COARSENESS HEARD AFTER COUGH, USING 10 LPM NC. PT UNCOMFORTABLE TO BE IN ONE POSITION FOR VERY LONG PER TAILBONE INJURY IN HIS YOUTH, ASSISTED TO CHAIR.
--- NOTE | 2020-12-14 08:18 | NUR ---
O2 SAT 90% ON 10L HFNC.
--- NOTE | 2020-12-14 09:33 | NUR ---
Pt screened by ST. Given hx of asthma and current dx of PNA with need for oxygen, pt at is at a high risk for aspiration. Pt may benefit from an ST evaluation if medical team agrees.
--- NOTE | 2020-12-14 13:05 | NUR ---
PT ASSISTED TO CHAIR. PT CALLS FOR ASSISTANCE APPROPRIATELY WHEN HE NEEDS HELP.
--- NOTE | 2020-12-14 13:28 | NUR ---
PT IS ON 10L HFNC SAT IS 93%
--- NOTE | 2020-12-14 13:56 | NUR ---
Patient participated with PT intervention today. Patient worked on B LE seated AROM exercises today: hip flexion, hip adduction, hip abduction, hamstring curls, knee extension, and ankle pumps for 15 reps x 2 sets with constant verbal and tactile cuing to help decrease trick movements and fall risks. Patient also participated with log rolling bed mobility and sit to stand push off transfer ADLs (1 to 3 reps) with constant verbal and tactile cuing to help decrease fall risks.
--- NOTE | 2020-12-14 17:06 | NUR ---
IV SITE CHANGED FROM RH TO LAC, #20. PT TOLERATED WELL.
--- NOTE | 2020-12-14 17:08 | NUR ---
PT IS ON 10 SAT 97%
[2020-12-15] VITALS (17 sets, daily range): BP systolic 112–168; BP diastolic 51–82
[2020-12-15 05:48] LABS: HEMATOCRIT 45.6 % (39.0-50.0); HEMOGLOBIN 14.8 g/dl (14.0-18.0); IMMATURE GRANULOCYTES 2.1 % (0.0-5.0); MEAN CELL VOLUME 98.1 fL CALC (80.0-100.0); MEAN CORPUSCULAR HGB 31.8 pG CALC (26.0-32.0); MEAN CORPUSCULAR HGB CONC 32.5 g/dL CAL (32.0-36.0); NEUT# 3.7 thou/uL (1.82-7.42); RED BLOOD COUNT 4.65 mill/uL (4.70-6.10); RED CELL DISTRI WIDTH 13.4 % (11.5-15.5)
[2020-12-15 06:10] LABS: ANION GAP 7 (6-22 (CALC)); BUN 25 mg/dL (8-23); BUN/CREATININE RATIO 38 (12-20 (CALC)); CARBON DIOXIDE 25 mmol/l (22-30); CHLORIDE 108 mmol/l (95-108); CREATININE 0.7 mg/dL (0.7-1.3); GFR > 60 ML/MIN (>=60 (CALC)); GFR FOR AFR.AMER. > 60 ML/MIN (>=60 (CALC)); POTASSIUM 4.5 mmol/l (3.5-5.1); SODIUM 135 mmol/l (137-146)
--- NOTE | 2020-12-15 07:16 | NUR ---
PT IS ON 10L HFNC SAT IS 95%
--- NOTE | 2020-12-15 07:40 | NUR ---
pt awake in bed; offers no complaints; no apparent distress noted; assessment completed at this time; pt alert and oriented; denies pain; no n/v noted; resp even and unlabored; lungs clear/ diminished bases; skin color wnl; o2 per hfnc at 10L; productive cough of yellow sputum; exertional sob; hr irreg; strong pulses; edema noted to ble; sa pac.pvc on monitor; abd soft with bs present; no bm noted per newswriter; pt admits to voiding without complication; no urine to inspect at this time; bsc; #20 flushed and patent to lac; abt infusing without complication; no redness or edema noted at site; plan of care/ am meds explained; call light within reach; will continue to monitor
--- NOTE | 2020-12-15 08:03 | NUR ---
awake in bed; offers no complaints; iv intact and patent; abt infusing without complication; sb pac/pvc on monitor; call light within reach; will continue to monitor
--- NOTE | 2020-12-15 09:05 | NUR ---
Dr Simmons present at bedside to assess pt and discuss plan of care
--- NOTE | 2020-12-15 09:25 | NUR ---
o2 titrated to 8L HFNC; o2 sat 94%
--- NOTE | 2020-12-15 10:13 | NUR ---
resting in bed with eyes closed; easily aroused; no apparent distress noted; o2 per nc at 8L; sa pac.pvc on monitor; call light within reach; will continue to monitor
--- NOTE | 2020-12-15 11:14 | NUR ---
PT IS ON 10L HFNC SAT 92% SITTING IN CHAIR
--- NOTE | 2020-12-15 11:30 | NUR ---
assist to recliner at this time; exertional sob noted
--- NOTE | 2020-12-15 12:10 | NUR ---
awake in recliner; offers no complaints; iv intact; sa pac/pvc on monitor; o2 per nc at 8L; deny needs; call light within reach; will continue to monitor
--- NOTE | 2020-12-15 14:00 | NUR ---
awake in recliner; offers no complaints; no distress noted; sa pac/pvc on monitor; call light within reach; will continue to monitor
--- NOTE | 2020-12-15 15:15 | NUR ---
Patient participated with PT iintervention today. Patient did seated B LE AROM exercises doing: hip flexion, hip adduction, hip abduction, knee extension, hamstring curls, and ankle pumps for 10 reps x 2 sets with occasional verbal and tactile cuing to help decrease trick movements and fall risks. Patient participated with log rolling bed mobility and sit to stand push off transfer (1 to 3 reps) with occasional verbal and tactile cuing to help decrease trick movements and fall risks (min A x 1 to CGA x 1).
--- NOTE | 2020-12-15 16:11 | NUR ---
awake in recliner; offers no complaints; iv intact; sa pac.pvc on monitor; o2 per nc; will continue to monitor
--- NOTE | 2020-12-15 17:45 | NUR ---
pt transferred to med surg tele room 284 via wc with portable o2 at 8L, in stable condition; transferred per this junior copywriter and Sandra Ross RN; bedside report provided to Ghazala Raines RN; all questions answered;
--- NOTE | 2020-12-15 17:55 | NUR ---
PT ARRIVED ON FLOOR VIA STRETCHER ACCOMPANIED BY ICU NURSE. PT STABLE WITH NO IMMEDIATE NEEDS AT THIS TIME. PT CONTINUING O2 THERAPY. PATIENT ON TELE SR-SB WITH OCCASSIONAL PVCS. SAFETY PRECAUTIONS IN PLACE. CALL LIGHT WITHIN PATIENT REACH
--- NOTE | 2020-12-15 18:15 | NUR ---
call placed to anila Verasy; update provided in regards to med surg transfer
--- NOTE | 2020-12-15 20:00 | NUR ---
PATIENT RESTING IN BED AT THIS TIME WITH O2 AT 8L HIGH FLOW WITH O2 SAT 92%. AWAKE ALERT AND ORIENTEDX3. PATIENT WITH TELE MONITOR IN PLACE-LAST READING SB PVC'S. SALINE LOCK TO LAC INTACT AND REMAINS HEALTHY AT THIS TIME. PATIENT UP TO THE BSC TO VOID. DENIES ANY DIFFICULTY. PATIENT STATES THAT HE DID HAVE BM TODAY. LUNGS ARE CLEAR BUT DIMINISHED. ABD IS SOFT WITH BS+. BLE SWELLING 2+-ENCOURAGED ELEVATION OF BLE. ENCOURAGED USE OF THE IS Q1H WHILE AWAKE IN REPS OF 10. ABLE TO DEMONSTRATE PROPER USE OF THE DEVICE. ENCOUARGED PRONING WHEN ABLE. PATIENT ON ISOLATION FOR COVID. PRODUCTIVE COUGH AT TIME WITH YELLOW SPUTUM. SAFETY PRECATIONS REINFORCED. CALL LIGHT IN REACH. WILL CONT TO MONITOR.
--- NOTE | 2020-12-15 21:00 | NUR ---
RESTING IN BED-MEDICATED FOR GENERALIZED ACHES AND PAINS WITH TYLENOL PER PATIENT REQUEST. PATIENT DECLINED HS SNACK AT THIS TIME. CALL LIGHT IN REACH. WILL CONT TO MONITOR.
[2020-12-16] VITALS: BP 163/80
--- NOTE | 2020-12-16 01:30 | NUR ---
PATIENT RESTING IN BED AT THIS TIME WITH EYES CLOSED. RESPS ARE EVEN AND UNLABORED AT THIS TIME. O2 SAT IS 93% ON 8L HIGH FLOW O2. TELE MONITOR IN PLACE-LAST READING SB-40"S. CALL LIGHT IN REACH. WILL CONT TO MONITOR.
[2020-12-16 04:00] VITALS: BP 141/79
--- NOTE | 2020-12-16 04:24 | NUR ---
PATIENT RESTING IN BED WITH EYES CLOSED. RESP ARE EVEN AND UNLABORED. O2 VIA NASAL CANNULA IN PLACE AT 8L HIGH FLOW WITH O2 OF 95%. TELE MONITOR IN PLACE WITH LAST READING SB-52. SALINE LOCK INTACT TO LAC-REMAINS HEALTHY AT THIS TIME. CALL LIGHT IN REACH. WILL CONT TO MONITOR.
[2020-12-16 05:25] LABS: HEMATOCRIT 41.7 % (39.0-50.0); HEMOGLOBIN 13.6 g/dl (14.0-18.0); IMMATURE GRANULOCYTES 2.1 % (0.0-5.0); MEAN CELL VOLUME 98.3 fL CALC (80.0-100.0); MEAN CORPUSCULAR HGB 32.1 pG CALC (26.0-32.0); MEAN CORPUSCULAR HGB CONC 32.6 g/dL CAL (32.0-36.0); NEUT# 3.99 thou/uL (1.82-7.42); RED BLOOD COUNT 4.24 mill/uL (4.70-6.10); RED CELL DISTRI WIDTH 13.4 % (11.5-15.5)
[2020-12-16 05:47] LABS: ALBUMIN 2.5 g/dL (3.2-5.0); ALKALINE PHOSPHATASE 49 u/l (38-126); ANION GAP 6 (6-22 (CALC)); BILIRUBIN, TOTAL 0.5 mg/dL (0.0-1.4); BUN 28 mg/dL (8-23); BUN/CREATININE RATIO 51 (12-20 (CALC)); C-REACTIVE PROTEIN 2.5 mg/dL (0-0.9); CARBON DIOXIDE 24 mmol/l (22-30); CHLORIDE 108 mmol/l (95-108); CREATININE 0.5 mg/dL (0.7-1.3); GFR > 60 ML/MIN (>=60 (CALC)); GFR FOR AFR.AMER. > 60 ML/MIN (>=60 (CALC)); POTASSIUM 4.5 mmol/l (3.5-5.1); SGOT/AST 21 u/l (19-48); SODIUM 134 mmol/l (137-146); TOTAL PROTEIN 5.4 g/dL (6.3-8.2)
[2020-12-16 07:46] VITALS: BP 145/75
--- NOTE | 2020-12-16 07:46 | NUR ---
PT ALERT AND ORIENTED. PT COVID+, ON 8L HF. NC. VITALS AND ASSESSMENT COMPLETED. S1 AND S2 HEARD UPON ASCULTATION. LUNGS CLEAR/DIMINISHED. PT SKIN IS INTACT. EDEMA ON LOWER EXTREMITIES. SKIN COOL AND DRY. PRODUCTIVE COUGH WITH YELLOW MUCUS BEING EXPELLED. IV INTACT AND HEALTHY. PT REPORTED NO PAIN. NO OTHER NEEDS WANTED AT THIS TIME.
--- NOTE | 2020-12-16 08:23 | NUR ---
pts iv medication azithromycin/ceftriazone not on the floor not on the floor. pharmacy contacted.
--- NOTE | 2020-12-16 11:21 | NUR ---
DR VILLANUEVA AT BEDSIDE DISCUSSING POC.
--- NOTE | 2020-12-16 11:26 | NUR ---
PT IN BED. NO DISTRESS NOTED. CALL LIGHT WITHIN REACH
[2020-12-16 12:27] VITALS: BP 111/60
--- NOTE | 2020-12-16 14:21 | NUR ---
PT GOT WASHED UP AND WENT IN THE RECLINER. NO DISTRESS NOTED. CALL LIGHT WITHIN REACH.
--- NOTE | 2020-12-16 15:30 | NUR ---
PT PUT BACK IN BED PER HIS REQUEST. NO DISTRESS NOTED. CALL LIGHT WITHIN REACH.
--- NOTE | 2020-12-16 15:56 | NUR ---
Patient participated with PT intervention today. Patient carried out log rolling bed mobility (did 1 to 2 reps rolling from each side with no c/o discomfort) and sit to stand push off from bed to reclining chair and reclining chair to the bed side commode and back with constant verbal and tactile cuing to help decrease trick movements and fall risks. Patient also walked 3 to 5 feet x 2 reps on level surfaces with CGA x 1 with constant tactile and verbal cuing to help reinforce dynamic balance capability while decreasing fall risks. Patient also practiced proper pursed lip diaphragmatic breathing pattern, started with 3 segmental breathing inhalation followed by prolonged exhalation (patient did pattern for 5 reps until patient was able to carry out pursed lip breathing cycle). Patient also did seated B LE AROM exercises doing hip flexion, hip adduction, hip abduction, hamstring curls, knee extension, and ankle pumps for 15 reps x 2 sets with occasional verbal and tactile cuing to help reinforce prolonged functional weight bearing ADLs.
[2020-12-16 16:53] VITALS: BP 136/62
--- NOTE | 2020-12-16 18:00 | NUR ---
TITRATED PT DOWN TO 7L. PT TOLERATED WELL. O2 IS 94%. CALL LIGHT WITHIN REACH.
[2020-12-16 19:00] VITALS: BP 122/66
--- NOTE | 2020-12-16 19:41 | NUR ---
PATIENT RESTING IN BED AT THIS TIME WITH O2 VIA NC HIGH FLOW AT 6L. O2 SAT IS 93%. AWAKE ALERT AND ORIENTEDX3. PATIENT STATES THAT HE IS FEELING STRONGER. TELE MONITOR IN PLACE-LAST READING A FIB 60"S. PATIENT IS UP TO THE BSC TO VOID YELLOW URINE. STATES THAT HE DID HAVE BM TODAY. LUNGS ARE CLEAR/DIMINISHED. OCC PRODUCTIVE COUGH WITH YELLOW SECREATIONS. ABD IS SOFT WITH BS+. STILL WITH BLE SWELLING. PULSES ARE PALPABLE. ENCOURAGED ELEVATION OF FEET. ON ISOLATION FOR COVID. ENCOURAGED USE OF IS Q1H W/A IN REPS OF 10. ENCOURAGED PRONING WHEN POSSIBLE. SAFETY PRECAUTIONS REINFORCED. CALL LIGHT IN REACH. WILL CONT TO MONITOR.
--- NOTE | 2020-12-16 20:51 | NUR ---
RESTING IN BED-MEDICATED WITH LOVENOX ORDERED. MEDICATED WITH TYLENOL PER PATIENT REQUEST FOR GENERALIZED DISCOMFORT-STATES THAT IT DOES HELP HIM SLEEP. PROVIDED WITH HS SNACK-JUICE AND CEREAL BAR. O2 IN PLACE. TELE MONITOR IN PLACE. CALL LIGHT IN REACH, WILL CONT TO MONITOR.
[2020-12-17] VITALS (7 sets, daily range): BP systolic 102–163; BP diastolic 63–89
--- NOTE | 2020-12-17 00:53 | NUR ---
PATIENT RESTING IN BED WITH HOB ELEVATED AND EYES CLOSED. RESPS ARE EVEN AND UNLABORED AT THIS TIME. O2 NS IN PLACE AT 6L HIGH FLOW WITH O2 SAT OF 96% AT THIS TIME. TELE MONITOR IN PLACE WOITH LAST READING OF AFIB 59 WITH PAC'S. SALINE LOCK INTACT TO LAC. CALL LIGHT IN REACH. WILL CONT TO MONITOR.
--- NOTE | 2020-12-17 02:20 | NUR ---
PATIENT SITTING UP IN BED WITH EYES CLOSED. RESPS ARE EVEN AND UNLBORED-O2 NC AT 6LPM HIGH FLOW WITH O2 SAT OF 98. CALL LIGHT IN REACH. WILL CONT TO MONITOR.
--- NOTE | 2020-12-17 04:44 | NUR ---
PATIENT RESTING IN BED WITH EYES CLOSED AND O2 VIA NC IN PLACE AT 6L HIGH FLOW AND O2 SAT OF 98%. TELE MONITOR IN PLACE WITH LAST READING OF AFIB PAC-58. SALINE LOCK TO LAC INTACT. CALL LIGHT IN REACH. WILL CONT TO MONITOR,.
--- NOTE | 2020-12-17 07:34 | NUR ---
PT AWAKE UPON ENTERING ROOM. COVID+ ON 6L OF O2. VITALS AND ASSESSMENT COMPLETED. S1 AND S2 HEARD UPON ASCULTATION. BOWELS ACTIVE IN ALL 4 QUADRANTS. SKIN COOL AND DRY. IV PATENT AND HEALTHY. PEDAL PULSES STRONG BILATERALLY. NO PAIN INDICATED. CALL LIGHT WITHIN REACH.
--- NOTE | 2020-12-17 11:43 | NUR ---
PT IN BED. NO DISTRESS NOTED. CALL LIGHT WITHIN REACH.
--- NOTE | 2020-12-17 14:43 | NUR ---
PT IN BED. NO DISTRESS NOTED. CALL LIGHT WITHIN REACH.
--- NOTE | 2020-12-17 16:00 | NUR ---
pt in bed no distress noted. call light within reach.
--- NOTE | 2020-12-17 21:00 | NUR ---
PATIENT SITTING UP IN THE BED WATCHING TV WITH HIS O2 VIA NC ON HIGH FLOW O2 AT 4LPM. O12 SAT IS 94%. PATIENT IS AWAKE ALERT AND ORIENTEDX3. PATIENT CONT TO IMPROVE. TELE MONITOR IN PLACE-LAST READING WAS A-FIB 73 WITH PVC'S. LUNGS ARE CLEAR BUT DIMINISHED. ABD IS SOFT WITH ACTIVE BS. STATES THAT HE DID HAVE BM TODAY. UP TO THE BSC TO VOID IRASEMA URINE. STILL WITH BLE SWELLING-ENCOURAGED TO ELEVATE ON PILLOWS. ENCOURAGED PATIENT TO USE IS Q1H WHILE AWAKE IN REPS OF 10. ENCOURAGED TO PRONE IF POSSIBLE. PROVIDED WITH HS SNACK OF JUICE AND CEREAL BAR. TYLENOL 650MG PO GIVEN PER PATIENT REQUEST FOR GENERALIZED DISCOMFORT AND SLEEP. ON ISOLATION FOR COVID. TALKING ABOUT POSSIBLY GOING TO REHAB WHEN DISCHARGED FROM HERE. LIVES ALONE. SAFETY PRECAUTIONS REINFORCED. CALL LIGHT IN REACH. WILL CONT TO MONITOR.
[2020-12-18 00:18] VITALS: BP 160/72
--- NOTE | 2020-12-18 00:30 | NUR ---
PATIENT RESTING IN BED WITH EYES CLOSED. RESP ARE EVENA ND UNLABORED. HOB IS ELEVATED. O2 VIA NASAL CANNULA IN PLACE AT 4L HIGH FLOW-O2 SAT IS 94%. TELE MONITOR IN PLACE-LAST READING WAS AFIB 75 WITH PVC'S. CALL LIGHT IN REACH.WILL CONT TO MONITOR,. +
[2020-12-18 04:00] VITALS: BP 151/79
--- NOTE | 2020-12-18 04:30 | NUR ---
PATIENT RESTING IN BED WITH EYES CLOSED AT THIS TIME. RESP ARE EVEN AND UNLABORED AT THIS TIME. O2 VIA NC AT 4L HIGH FLOW IN PL [place]. O2 SATS WAS 91% AT THIS TIME. TELE MONITOR IN PLACE. NO CHANGE IN TELE READING. CALL LIGHT IN REACH. WILL CONT TO MONITOR.
[2020-12-18 05:37] LABS: HEMATOCRIT 40.2 % (39.0-50.0); IMMATURE GRANULOCYTES 4.1 % (0.0-5.0); MEAN CELL VOLUME 99.3 fL CALC (80.0-100.0); MEAN CORPUSCULAR HGB 32.1 pG CALC (26.0-32.0); MEAN CORPUSCULAR HGB CONC 32.3 g/dL CAL (32.0-36.0); NEUT# 4.34 thou/uL (1.82-7.42); RED BLOOD COUNT 4.05 mill/uL (4.70-6.10); RED CELL DISTRI WIDTH 13.6 % (11.5-15.5)
[2020-12-18 06:17] LABS: ALBUMIN 2.4 g/dL (3.2-5.0); ALKALINE PHOSPHATASE 47 u/l (38-126); ANION GAP 7 (6-22 (CALC)); BILIRUBIN, TOTAL 0.4 mg/dL (0.0-1.4); BUN 29 mg/dL (8-23); BUN/CREATININE RATIO 44 (12-20 (CALC)); C-REACTIVE PROTEIN 1.4 mg/dL (0-0.9); CARBON DIOXIDE 26 mmol/l (22-30); CHLORIDE 106 mmol/l (95-108); CREATININE 0.7 mg/dL (0.7-1.3); GFR > 60 ML/MIN (>=60 (CALC)); GFR FOR AFR.AMER. > 60 ML/MIN (>=60 (CALC)); POTASSIUM 4.4 mmol/l (3.5-5.1); SGOT/AST 17 u/l (19-48); SODIUM 135 mmol/l (137-146); TOTAL PROTEIN 5.3 g/dL (6.3-8.2)
[2020-12-18 07:22] VITALS: BP 168/73
--- NOTE | 2020-12-18 07:22 | NUR ---
PT AWAKE WHEN ENTERED ROOM. ALERT AND ORIENTED. COVID+ ON 4L HF NC. VITALS AND ASSESSMENT COMPLETED AT THIS TIME. S1 AND S2 HEARD UPON ASCULTATION. BOWELS ACTIVE IN ALL 4 QUADRANTS. SKIN COOL AND DRY. IV PATENT AND HEALTHY. PEDAL PULSES EQUALLY STRONG BILATERALLY. PT WAS LOOKING FOR HIS WALKER FOUND IT AND PLACED IN ROOM WITH HIM. NO DISTRESS NOTED. CALL LIGHT WITHIN REACH.
[2020-12-18 10:30] VITALS: BP 125/64
--- NOTE | 2020-12-18 11:44 | NUR ---
DR. KAL BORRERO AT BEDSIDE DISCUSSING POC.
--- NOTE | 2020-12-18 13:35 | NUR ---
Patient participated with PT intervention today. Patient carried out log rolling bed mobility and sit to stand push off transfer ADLs (1 to 3 reps) with occasional verbal and tactile cuing to help decrease trick movements and fall risks. Patient also did B LE seated AROM exercises doing hip flexion, hip adduction, hip abduction, hamstring curls, knee extension, and ankle pumps for 15 reps x 2 sets with occasional verbal and tactile cuing to help decrease trick movements and fall risks. Patient walked between the bed to the reclining chair with SBA x 1 to supervision covering 3 to 5 feet x 2 reps with occasional verbal and tactile cuing.
--- NOTE | 2020-12-18 14:25 | NUR ---
PT IN BED. NO DISTRESS NOTED. CALL LIGHT WITHIN REACH.
[2020-12-18 14:55] VITALS: BP 111/72
[2020-12-18] MEDS ORDERED: XARELTO20 MG PO (15:02)
[2020-12-18] MEDS ORDERED: VENTOLIN HFA108 MCG IN (15:02)
[2020-12-18] MEDS ORDERED: DEXAMETHASONE2 MG PO (15:02)
--- NOTE | 2020-12-18 18:15 | NUR ---
Discharge instructions given. Patient verbalizes understanding of same. Discharged in stable condition via Medical Transport to [facility] with staff. All belongings sent with pt.
--- NOTE | 2020-12-18 18:25 | NUR ---
CALLED IN REPORT TO [facility].
== END 2020-12-18 18:19 | DRG 177 ==
LOC: ED 09:43 → ED-I 13:34 → ED 13:49 → ICU 13:50 → MS2 13:50 → ICU 12-10 11:11 → MS2 12-15 17:45
PROVIDERS: Family Medicine; Internal Medicine; Nurse Practitioner; ADMIT Hospitalist; ATTEND Hospitalist
PROC: XW033E5 Introduction of Remdesivir Anti-infective into Peripheral Vein, Percutaneous Approach, New Technology Group 5 (ICD-10-PCS; principal; 2020-12-08)
DX: U07.1 COVID-19 (principal); J12.82 Pneumonia due to coronavirus disease 2019; J96.01 Acute respiratory failure with hypoxia; I10 Essential (primary) hypertension; J45.909 Unspecified asthma, uncomplicated; E78.5 Hyperlipidemia, unspecified; I48.91 Unspecified atrial fibrillation; M10.9 Gout, unspecified; E66.01 Morbid (severe) obesity due to excess calories; F17.200 Nicotine dependence, unspecified, uncomplicated; Z68.36 Body mass index [BMI] 36.0-36.9, adult
CPT/HCPCS: J1650; Q9967